=== PATIENT | male | born 1970 | race Caucasian/White ===

== ENCOUNTER 2021-07-15 12:14 | Emergency (ER) | payer MEDICAID ==
[2021-07-15] MEDS ORDERED: Amoxicillin/Clavulanate K 875-125 MG Tab PO ONE (12:36)
[2021-07-15] MEDS ORDERED: Sulfamethoxazole/Trimethoprim 800-160 MG Tab PO ONE (12:36)
== END 2021-07-15 13:24 | disposition home or self-care (01) ==
LOC: MW.ED 12:14
DX: T81.40XA Infection following a procedure, unspecified, initial encounter (principal)
CPT/HCPCS: 73110; 87070; 87205; 99283; A9270; 87075